=== PATIENT | female | born 1955 | race Caucasian/White ===

== ENCOUNTER 2024-10-27 14:06 | Emergency (ER) | payer MEDICARE, SELFPAY ==
--- OUTSIDE RECORDS SUMMARY | 2020-10-18 08:47 | XMS_ITS | Continuity of Care Document ---
Author Organization [facility] Address [address] [address] [place] [address] Phone Care Team Providers Care Manager Meeting Name Role Phone Jhoan Melendez MD Unavailable Unavailable Allergies, Adverse Reactions, Alerts Substance Reaction Status Criticality Penicillins violently sick Active No Informat ion Medications Medication Instructions Dosage Effective Dates (start - stop) Status Comments AMLODIPINE BESYLATE (unknown strength) Take one tablet by mouth daily. 3mg Not Available - Active triamterene-hydroc hlorothiazide 37.5 mg-25 mg Tab Take one tablet by mouth daily - Active citalopram 10 mg Tab - Active Procedures Procedure Date Colonoscopy Flex; Dx (sep Pro) 10 Advance Directives Directive Yes / No Effective Date File Name No Information Encounters Encounter Description Practice Location Reason(s) For Visit Diagnoses Date Provider Providers Copied on Encounter [facility], [address] [address], [place] Antonio [place], [id number], [place] tel:[phone] [facility] No Information 1 [address]ples. [address] [facility], [place], [place], [id number] , [place]. tel:[phone] [facility], [address] [address], [place], [id number], [place] tel:[phone] Philippe [facility] Diverticulosis Of ColonColon Cancer ScreeningFamily Hx/Colonic PolypsDiverticulosi s Of Colon [phone] Chantelle Colindres. [address] [facility], [facility] [address], [place], [place], [id number] , [place]. tel:[phone] Referring Provider: Beti Huggins MD M, [address], [place], [address]. tel:[phone] Family History Family Member Type Diagnosis Age At Onset No Information Payers Payer name Insurance type Covered republican ID Authoriza tion(s) No Information Social History Type Description Quantity Date Captured Comments Sex Female Smoking Status No Information Chief Complaint And Reason For Visit No Information Reason For Referral Reason For Referral No Information History Of Present Illness Encounter Date Complaint History Of Prese nt Illness No Information Functional Status Date Functional Assessmen t No Information Instructions Date Instruction Additional Infor mation No Information Assessments Type Assessment Date No Information Patient Care Teams Name Effective Dates (start - stop) Status Members No Information
--- OUTSIDE RECORDS SUMMARY | 2024-10-26 10:20 | XMS_ITS | Encounter Summary ---
Author Organization [facility] Address [address] [place] [address] Care Team Providers Care Parcel Post Officer Name Role Phone Needs Pcp, Assignment Primary Care Provider Reason for Visit * Reason Comments Insect Sting - Bee Encounter Details Date Type Department Care Team (Late st Contact Info) Description 10/26/2024 10:20 AM CDT Office Visit [facility] [facility] [address] [place] [phone] [place] [address] [place], [place] [phone] Bee sting, accidental or unintentional, initial encounter Social History Tobacco Use Types Packs/Day Years Used Date Smoking Tobacco: Never Smokeless Tobacco: Never Alcohol Use Standard Drinks/Week Comments No 0 (1 standard drink = 0.6 oz pure alcohol) Alcoholic Drinks/day: Freq:Never; Comments No Sex and Gender Information Value Date Recorded Sex Assigned at Not on file Legal Sex Female 4:42 AM CDT Gender Identity Not on file Sexual Orientation Not on file 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 * Insect Stings and Bites (Japanese) documented in this encounter Progress Notes * Ld Peck MD - 10/26/2024 10:20 AM CDT Patient presents with multiple bee/wasp stings to her right hand after reaching into a mailbox. No know allergy to bees. Patient requests an excuse letter for work/school: No Past Medical History: Diagnosis Date Abnormal glucose 06/08/2013 Subject 69 years old female presented today to clinic she was her mailbox in the office they were multiple vasps they sting her, her dorsal side of the hand on the right side is swollen warm red burning sensation. Past medical history she stated that is she was in the past also stung by was she has some reaction to the but in the past mostly was syncopal. She deny any chest pain chest tightness short of breath cough or swollen tongue or any breathing difficulty or swallowing difficulties. Patient generally alert oriented she does not seems to be distress Objective BP 138/82 (BP Location: Left Arm) Pulse 73 Resp 18 SpO2 98% Vital above Both ear clear, nose midline septum, oral cavity pharynx uvula appear normal Tongue midline not swollen uvula midline not swollen Neck no enlarged lymph Lungs clear no wheezing no crackles no breathing difficulty Cardiac S1-S2 regular normal pulse 73 Upper extremity joints symmetrical for range of motion passive wax normal she has very good reflex normal strong pulse on the both side, dorsal side of her right hand is slightly swollen red feel warm burning sensation Assessment Vasp sting with above local inflammatory reaction Plan Patient agree doze are not bacterial infection doze local reaction to the vein him of the insect plan prednisone Zyrtec during the day prednisone course atopic, ice, Benadryl at night worse additional symptom concern question back to the clinic otherwise follow-up protein she agree documented in this encounter Nursing Notes * Padmini Coronel RN - 10/26/2024 10:20 AM CDT Patient presents with multiple bee/wasp stings to her right hand after reaching into a mailbox. No know allergy to bees. Patient requests an excuse letter for work/school: No documented in this encounter Plan of Treatment Not on file documented as of this encounter Visit Diagnoses Diagnosis Bee sting, accidental or unintentional, initial encounter documented in this encounter Administered Medications Inactive Administered Medications - up to 3 most recent administrations Medication Order MAR Action Action Date Dose Rate Site diphenhydrAMINE (BENADRYL) caplet 25 mg 25 mg, Oral, ONCE, On Fri10/26/24 at 1100, For 1 doseIndications:Bee sting, accidental or unintentional, initial encounter Given 10/26/2024 10:37 AM CDT 25 mg documented in this encounter Care Teams Parcel Post Officer Relationship Specialty Start Date End Date Needs Pcp, [place] [address] PCP - General 02/02/21 documented as of this encounter
--- OUTSIDE RECORDS SUMMARY | 2024-10-27 14:10 | XMS_ITS | Encounter Summary ---
Author Organization [facility] Address [address] [place] [address] Care Team Providers Care Brine Supervisor Name Role Phone Fatemeh Mims PA-C Primary Care Provid er Fatemeh Mims PA-C Unavailable + [phone] Jami Holley MD Unavailable [phone] Fatemeh Mims PA-C Unavailable + [phone] Encounter Details Date Type Department Care Team (Late st Contact Info) Description 09/27/2020 MyC Medical Advice [facility] [address] [place] [address] [address] [place] [phone] Iris Knapp Social History Tobacco Use Types Packs/Day Years Used Date Smoking Tobacco: Never Smokeless Tobacco: Never Alcohol Use Standard Drinks/Week Comments No 0 (1 standard drink = 0.6 oz pur e alcohol) PHQ-2 Answer Date Recorded PHQ-2 Score 2 04/08/2019 Comments No Sex and Gender Information Value Date Recorded Sex Assigned at Not on file 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 Gender Identity Not on file Sexual Orientation Not on file Occupation 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 Not on file Not on file Not on file documented as of this encounter Plan of Treatment Not on file documented as of this encounter Visit Diagnoses Not on filedocumented in this encounter Additional Health Concerns Assessment Noted Time PHQ-9 Depression Total Score: 6 04/08/20 19 4:12 PM GAS OR WATER METER INSTALLER documented as of this encounter Care Teams Brine Supervisor Relationship Specialty Start Date End Date Fatemeh Mism PA-C [address], [address] [address] PCP - General Physician Rn Document Improvement Specialist 05/28/17 Fatemeh Mims PA-C [address], [address] [address] Assigned PCP 09/15/16 11/02/21 Jami Holley MD [address] [address] Assigned PCP 11/03/21 11/23/21 Fatemeh Mims PA-C [address], [address] [address] Assigned PCP 11/24/21 documented as of this encounter
--- OUTSIDE RECORDS SUMMARY | 2024-10-27 14:10 | XMS_ITS | Data Portability ---
Author Organization [facility] [employer] [facility] Address [address] [place] [id number] Assessment No assessment recorded. Plan of Treatment Reminders Order Date Submit Date Provider Last Modified By Organization Details Last Modified Time Details Appointments None recorded. Lab rapid SARS CoV 2 Ag, QL IA, respiratory specimen [address], [address] [place] [address], [id number], 15:54:23 rapid SARS CoV 2 Ag, QL IA, respiratory specimen [address], [address] [place] [address], [id number], 15:35:49 Referral None recorded. Procedures None recorded. Surgeries None recorded. Imaging None recorded. Medication Orders None recorded. Patient TargetsNo targets recorded. Patient Instructions Encounter Date Encounter Id Patient Instructions Last Modified By Organization Details Last Modified Time 01/02/2021 [id number] Discuss the following with patient/parent To Keep a safe distance. ... Wear a mask. ... Encourage proper hygiene. ... The best way to protect yourself and others is to stay home for 14 days if you think you ve been exposed to someone who has COVID-19. Watch for fever (100.4 F or higher), cough, shortness of breath, or other symptoms of COVID-19. Do not travel until 14 days after your last possible exposure. Monitor yourself and household members for symptoms of COVID-19. Look for emergency warning signs* for COVID-19. If you have any of these signs, seek emergency medical care immediately Trouble breathing Persistent pain or pressure in the chest New confusion Inability to wake or stay awake [email or web address] Not available 01/03/2021 15:35:59 50% spend counseling Not available 01/03/2021 15:36:07 04/13/2021 [id number] Discuss the following with patient/parent To Keep a safe distance. ... Wear a mask. ... Encourage proper hygiene. ... The best way to protect yourself and others is to stay home for 14 days if you think you ve been exposed to someone who has COVID-19. Watch for fever (100.4 F or higher), cough, shortness of breath, or other symptoms of COVID-19. Do not travel until 14 days after your last possible exposure. Monitor yourself and household members for symptoms of COVID-19. Look for emergency warning signs* for COVID-19. If you have any of these signs, seek emergency medical care immediately Trouble breathing Persistent pain or pressure in the chest New confusion Inability to wake or stay awake Not available 04/13/2021 15:54:22 Reason for Referral None Reported. Results Created Date Observation Date Name Description Value Unit Range Abnormal Flag Note LastModifiedBy Organization Detail LastModifiedTime 01/03/20 21 01/02/2021 rapid SARS CoV 2 Ag, QL IA, respi rator y speci men Results negati ve Not Available Formerly [facility] [address] [place] [address], [phone], 01/02/2021 16:42:38 Result Notes None recorded. Medical Equipment None Reported. Medications Name Sig Start Date Stop Date Status Note LastModified by Organization Details LastModified Time latanoprost 0.005 % eye drops INSTILL 1 DROP INTO BOTH EYES AT BEDTIME active Not Available Not Available No t Available atorvastatin 20 mg tablet TAKE 1 TABLET BY MOUTH EVERY DAY active Not Available Not Available No t Available atorvastatin 10 mg tablet TAKE 1 TABLET BY MOUTH EVERY DAY active Not Available Not Available No t Available amlodipine 5 mg tablet TAKE 1 TABLET BY MOUTH EVERY DAY active Not Available Not Available No t Available tramadol 50 mg tablet active Not Available Not Available Not Available citalopram 20 mg tablet TAKE 1 TABLET BY MOUTH EVERY DAY active Not Available Not Available No t Available diazepam 2 mg tablet TAKE 1 TABLET (2 MG) BY MOUTH EVERY 12 HOURS NEEDED FOR ANXIETY OR SLEEP active Not Available Not Available No t Available triamterene 37.5 mg-hydrochloro thiazide 25 mg tablet TAKE 1 TABLET BY MOUTH EVERY DAY active Not Available Not Available No t Available ibuprofen 600 mg tablet active Not Available Not Available No t Available oxycodone 5 mg tablet active Not Available Not Available Not Available hydroxyzine pamoate 25 mg capsule active Not Available Not Available Not Available Vitals None Recorded Social History None recorded. Functional Status None recorded. Mental Status None recorded. Family History Nothing Reported. Medical History No medical history recorded. Gynecological HistoryNo gynecological history recorded. Obstetrics History GPAL:G 0 P 0 0 0 0 Past Encounters Encounter ID Performer Location Encounter Start Date Encounter Closed Date Diagnosis/Indication Diagnosis SNOMED-CT Code Diagnosis ICD10 Code Diagnosis Note [id number] ANAND Augustin Michael [address] [address] 01/02/2021 16:42:06 01/02/2021 16:43:25 Exposure to SARS-CoV-2 571367189 Z20.822 Counseling 315994164 Z71 .9 [id number] ANAND Augustin Michael [address] [address] 04/13/2021 14:39:12 04/18/2021 13:21:53 Exposure to SARS-CoV-2 505561369 Z20.822 Counseling 145975048 Z71 .9 Health Concerns Section Related Observation LastModified by Organization Detai ls LastModified Time None Recorded Concern Status LastModified by Organization Details LastModified Time None Recorded Advance Directives Directive None Recorded Payers Insurance Date Sequence Insurance Name Policy Number Policy Clark Covered Member ID Clark Member ID Guarantor Name 06/05/2021 [facility] Emelia Moon [id number] Carol Moon 02/16/2021 1 [employer] - DOS PRIOR TO 2021 Emelia Moon [id number] Carol Moon 04/27/2021 1 [employer] - INDIVIDUAL AND FAMILY (HMO) Emelia Moon [id number] Carol Moon 02/14/2021 2 [facility] - INDIVIDUAL AND FAMILY (HMO) Emelia Moon [id number] Carol Moon Notes Date Note Type Note Provider Name and Address Organization Details Recorded Time 01/02/2021 text/html Patient is here for COVID19 testing after exposure. Patient denies cough, sore throat, no fevers / chills, no SOB or headaches. Otherwise doing well. ANAND Augustin [address] [place], [address], [employer] 01/03/2021 15:36:10 04/13/2021 text/html Patient is here for covid-19 test due to exposure. denies symptoms. ANAND Augustin [address] [place], [address], [employer] 04/13/2021 15:54:30 OBGyn Episode No OBEpisode recorded.
--- OUTSIDE RECORDS SUMMARY | 2024-10-27 14:10 | XMS_ITS | Encounter Summary ---
Author Organization [facility] Address [address] [place] [address] Care Team Providers Care Blanking Press Operator Name Role Phone Luis Ulloa MD Primary Care Provide r Fatemeh Mims PA-C Primary Care Provid er Fatemeh Mims PA-C Unavailable + [phone] Jami Holley MD Unavailable [phone] Fatemeh Mims PA-C Unavailable + [phone] Reason for Visit * Reason Comments Medication Refill Encounter Details Date Type Department Care Team (Late st Contact Info) Description 03/06/2015 Refill [facility] [address] [place] [phone] Chary Barry MD NO INFO AVAILABLE 11/07/22 Medication Refill Social History Tobacco Use Types Packs/Day Years Used Date Smoking Tobacco: Never Smokeless Tobacco: Never Alcohol Use Standard Drinks/Week Comments No 0 (1 standard drink = 0.6 oz pur e alcohol) Comments No Sex and Gender Information Value Date Recorded Sex Assigned at Not on file 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 Gender Identity Not on file Sexual Orientation Not on file Occupation 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 Not on file Not on file Not on file documented as of this encounter Plan of Treatment Not on file documented as of this encounter Visit Diagnoses Not on filedocumented in this encounter Care Teams Blanking Press Operator Relationship Specialty Start Date End Date Luis Ulloa MD [address], [address] [address] PCP - General Family Practice 04/28/13 05/27/17 Fatemeh Mims PA-C [address], [facility] [address] [place] [address] PCP - General Physician Metal Furniture Panel Coverer 05/28/17 Fatemeh Mims PA-C [address], [address] [address] Assigned PCP 09/15/16 11/02/21 Jami Holley MD [address] [address] Assigned PCP 11/03/21 11/23/21 Fatemeh Mims PA-C [address], [address] [address] Assigned PCP 11/24/21 documented as of this encounter
--- OUTSIDE RECORDS SUMMARY | 2024-10-27 14:10 | XMS_ITS | Encounter Summary ---
Author Organization [facility] Address [address] [place] [address] Care Team Providers Care Title I Director Name Role Phone Fatemeh Mims PA-C Primary Care Provid er Fatemeh Mims PA-C Unavailable [phone] Reason for Visit * Reason Comments Medication Refill Encounter Details Date Type Department Care Team (Late st Contact Info) Description 01/15/2022 Refill [facility] [address] [place] [address] Jami Holley MD [address] [place] [address] [address] [place] [address] Medication Refill Social History Tobacco Use Types Packs/Day Years Used Date Smoking Tobacco: Never Smokeless Tobacco: Never Alcohol Use Standard Drinks/Week Comments No 0 (1 standard drink = 0.6 oz pur e alcohol) PHQ-2 Answer Date Recorded PHQ-2 Score 2 12/07/2021 Comments No Sex and Gender Information Value Date Recorded Sex Assigned at Not on file 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 Pt takes 2 daily. Emelia Moon is requesting a refill of: Pending Prescriptions: Disp Refills amLODIPine (NORVASC) 5 MG tablet [Pharmac*180 ta*2 Sig: TAKE 2 TABLETS BY MOUTH EVERY DAY documented in this encounter Plan of Treatment Not on file documented as of this encounter Visit Diagnoses Diagnosis Benign essential hypertension Essential hypertension, benign documented in this encounter Additional Health Concerns Assessment Noted Time PHQ-9 Depression Total Score: 5 12/08/19 22 1:38 PM CDT documented as of this encounter Care Teams Title I Director Relationship Specialty Start Date End Date Fatemeh Mims PA-C [address], [address] [address] PCP - General Physician Hospice Clinical Supervisor 05/28/17 Fatemeh Mims PA-C [address], ANA M [address] [place] [address] Assigned PCP 11/24/21 documented as of this encounter
[2024-10-27 14:11] VITALS: BP 121/77; PULSE 68; RESP 18; TEMP 36.4; O2SAT 98; BMI 35.6
--- OUTSIDE RECORDS SUMMARY | 2024-10-27 14:11 | XMS_ITS | Encounter Summary ---
Author Organization [facility] [employer] [facility] Address [address] [address] Care Team Providers Care Chemistry Instructor Name Role Phone Needs Pcp, Assignment Primary Care Provider Reason for Visit * Reason Onset Date Comments Medication Questions 03/25/2016 Encounter Details Date Type Department Care Team (Late st Contact Info) Description 03/25/2016 Nurse Triage [facility] [address] [place] [address] Vannessa Delarosa MD [address] [place], [place] [phone] Medication Questions Social History Tobacco Use Types Packs/Day Years [...] on file documented as of this encounter Nursing Notes * Clara Mcintyre LPN - 03/26/2016 10:41 AM CST Patient called and advised. NESS INSTRUCTOR * Vannessa Delarosa MD - 03/25/2016 7:35 PM CST New order sent NESS INSTRUCTOR * Genaro Garcia APRN, CNP - 03/25/2016 4:58 PM CST This can wait until tomorrow for Dr. Delarosa to review. NESS INSTRUCTOR * Kristina Lancaster RN - 03/25/2016 2:56 PM CST Reason for Call: Medication Request. Next Steps: Review pended order for accuracy. Sign. Route to appropriate person/pool. Caller IS expecting a call back from Care Team. Route to [facility] Nurse pool for patient follow up. Additional Information:Needs clarification on Asmanex prescription. Pharmacy received prescription that would last only 8 days and insurance requires 30 day supply be ordered. Protocol: MEDICATION QUESTION [id number] Affirmative: Pharmacy calling with prescription questions and triager unable to answer question Disposition of Call PCP Now suggested. Spoke with pharmacist from [facility] in [facility] patient was given only 8 days of the Asmanex inhaler and insurance requires 30 day supply. Per visit note today: Prednisone 20 mg p.o. b.i.d. ??5 days.?? Amoxicillin 500 mg p.o. t.i.d. ??10 days.?? Asmanex inhaler 110 ??g per puff 1 puff twice daily.?? Albuterol inhaler 2 puffs every 4 hours as needed.?? Follow-up in 2-3 weeks, sooner if needed. Per medication list:mometasone furoate (ASMANEX 30 METERED DOSES) 110 mcg/inhalation inhaler 1 Inhaler 0 03/25/2016 -- ?? Sig - Route: Inhale 2 Puffs two times a day. - Inhalation ?? Please clarify how often patient to take the Asmanex and how may puffs she should use. New prescription pended for Asmanex 1 puff twice daily. NESS INSTRUCTOR * Naima Greenberg - 03/25/2016 2:26 PM CST Pharmacy calling with questions on a prescription that was e prescribed NESS INSTRUCTOR documented in this encounter Plan of Treatment Not on file documented as of this encounter Visit Diagnoses Not on filedocumented in this encounter Care Teams Chemistry Instructor Relationship Specialty Start Date End Date Needs Pcp, [place] [address] PCP - General 02/02/21 documented as of this encounter
--- OUTSIDE RECORDS SUMMARY | 2024-10-27 14:11 | XMS_ITS | Clinical Summary ---
Author Organization [facility] Address [address] [place] [address] Care Team Providers Care Nurse Extern Name Role Phone Needs Pcp, Assignment Primary Care Provider [phone] Source Comments You are receiving this document as you are listed as the primary care provider,follow-up provider, or the patient has been referred to you for consultation.This is in compliance with the Medicare andMedicaid EHR Incentive Program,which states Providers who transition their patient to another setting of careor provider of care or refers their patient to another provider of care shouldprovide summary care record for each transition of care or referral. Leroy Brothers Allergies Active Allergy Reactions Criticality Noted Date Comments Amlodipine Anaphylaxis High 09/12/2011 PN: certain brands will cause reactions. Amoxicillin 08/12/2014 Lip numb, hives Chlorpheniramine-Acetaminop hen Angioedema High 06/08/2013 Erythromycin 06/10/2000 PN: dizzy,nausea+vomiting Naproxen Anaphylaxis High 09/12/2011 PN: coating/ brand causes reaction; causes lip swelling Medications EPINEPHrine (AUVI-Q) 0.3 MG/0.3ML injectionIndicatio ns:Angioedema, subsequent encounter Inject 0.3 mLs into the muscle as needed. May Repeat 2 each 2 6 Active atorvastatin (LIPITOR) 10 MG tabletIndications: Hyperlipidemia, unspecified hyperlipidemia type (HRC) Take 1 Tab by mouth daily. 90 Tab 3 7 Active citalopram (CELEXA) 20 MG tabletIndications: Grief reaction (HRC) Take 1 Tab by mouth daily. 90 Tab 3 7 Active potassium chloride (K-DUR,KLOR-CONM) 20 MEQ tabletIndications: Low serum potassium level Take 1 Tab by mouth daily. 90 Tab 3 7 Active triamterene-hydroc hlorothiazide (MAXZIDE-25) 37.5-25 MG tabletIndications: Essential hypertension (HRC) Take 1 Tab by mouth daily. 90 Tab 3 7 Active rizatriptan (MAXALT) 10 MG tabletIndications: Migraine without aura and without status migrainosus, not intractable Take 1 Tab by mouth as needed for Headache. at onset of migraine. May repeat in 2 hr if needed up to 30mg in 24 hr & MAX use 5 days/month 9 Tab 6 7 Active amLODIPine (NORVASC) 5 MG tablet 9 Active diazePAM (VALIUM) 2 MG tablet Take 2 mg by mouth. 9 Active latanoprost (XALATAN) 0.005 % eye drop solution 1 Drop daily at bedtime. 2 Active timolol (TIMOPTIC) 0.5 % eye drop solution 1 Drop every morning. 2 Active citalopram (CELEXA) 20 MG tablet citalopram 20 mg tablet Active Hospital, Clinic, or Other Facility Administered Medication Ordered Dose Route Frequency Start Date End Date Status diphenhydrAMINE (BENADRYL) caplet 25 mgIndications:Bee sting, accidental or unintentional, initial encounter 25 mg OR ONCE 10/26/2024 10/26/2024 Ended Active Problems Problem Noted Date Diagnosed Date Migraine without aura and wi thout status migrainosus, not intractable 12/05/2016 OZ (generalized anxiety disorder) 07/24/2016 Moderate episode of recurrent major depressive d isorder 07/24/2016 Anxiety 06/12/2016 Leg swelling 11/21/2015 Abnormal glucose 06/08/2013 Angioedema 11/28/2011 Overview (12/14/2015): associated with use of the generic amlodipine. Tolerates MINERVA. Obesity 10/16/2010 Grief reaction 10/16/2010 Impaired glucose tolerance test 06/01/2009 Overview (12/04/2016): Glucose Intolerance (Impaired Tolerance) Obesity 07/16/2004 Overview (12/14/2015): LW Onset: [id number] Dyspnea and respiratory abnormalities 07/16/2004 Overview (12/04/2016): LW Modifier: heroic LW Onset: [id number] ; Snoring NOS Essential hypertension 09/18/2002 Overview (12/04/2016): Hypertension Obstructive sleep apnea 09/18/2002 Overview (12/04/2016): Setting: APAP 5-15 Supplied by: KATTY PSG done: 06/19/16 AHI 9 HTN Lowest O2 Sat: 82% Charissa/Maddison Ed ord 06/13/2016 Trumm New 07/08/16 ; Obstructive Sleep Apnea Hypopnea Hyperlipidemia 09/18/2002 Asthma 09/18/2002 Overview (12/04/2016): Asthma NOS Encounters Date Type Department Care Team Description 10/26/2024 10:20 AM CDT Office Visit [facility] [address] [place] [address] Ld Peck MD Bee sting, accidental or unintentional, initial encounter from Last 3 Months Immunizations Immunization Administration Dates Next Due DT Ped 12/23/1990,08/12/1989 Flu Vac Preserv Free (3+yrs) 03/08/2009, 03/29/2008,02/04/2007,03/06/20 05 Influenza LAIV (Nasal, 2-49 yrs) 03/13/2006 Influenza, Unspecified Formulation 02/22,03/04/2001,03/31/2000,02/15/19 99,02/20/1998 TDAP (BOOSTRIX) 11/21/2015 Td 03/21/2005 Family History Medical History Relation Name Comments Heart Disease Father Cataract Mother Glaucoma Mother Cancer, Breast Maternal Aunt 1 50s Cancer, Breast Maternal Aunt 2 60s Cancer, Breast Maternal Aunt 3 50s Diabetes Maternal Grandmother Cancer, Ovary Negative Family History Macular Degeneration Negative Family History Retinal Detachment Negative Family History Relation Name Status Comments Father Mother Brother 1 Alive Brother 2 Alive Brother 3 Brother 4 Alive Maternal Aunt 1 Alive Maternal Aunt 2 Maternal Aunt 3 Maternal Grandmother Sister 1 Alive Sister 2 Alive Social History Tobacco Use Types Packs/Day Years [...] file Not on file Not on file Last Filed Vital Signs Vital Sign Reading Time Taken Comments Blood Pressure 138/82 10/26/2024 10:22 AM CDT Pulse 73 10/26/2024 10:22 AM CDT Temperature 36.8 C (98.2 F) 11/15/2021 1:00 PM CDT Respiratory Rate 18 10/26/2024 10:22 AM CDT Oxygen Saturation 98% 10/26/2024 10:22 AM CDT Inhaled Oxygen Concentration - - Weight 105.8 kg (233 lb 4 oz) 12/04/2016 3:15 PM CDT Height 160 cm (5' 3) 07/09/2016 12:19 PM CDT Body Mass Index 41.32 07/09/2016 12:19 PM CDT Plan of Treatment Health Maintenance Due Date Last Done Comments Hep C Screening (Preventive Services) 1955 Medicare Annual Wellness Visit 1955 Tuberculosis Screening 1955 FIT Colon Cancer Screening 2000 Dexa 2021 Cholesterol 12/05/2021 12/05/2016, 12/2015, 08/06/2012, Additional history exists COVID-19 Vaccine ( season) 2023 08/30/2021, 02/28/2021, 07/18/2020, Additional history exists Mammogram 10/06/2024 10/07/2023, 12/15, 11/13/2015, Additional history exists Influenza Vaccine (#1) 2024 4, 01/30/2021, 02/02/2020, Additional history exists DTaP/Tdap/Td Vaccine (6 - Tdap) 11/20/2025 11/21/2015, 08/12/2014, 03/21/2005, Additional history exists RSV Vaccine (1 - 1-dose 75+ series) 2031 Zoster/Shingles Vaccine Completed 12/06/2020, 04/11 Pneumococcal Vaccine 50+ Yrs Completed 03/31/2024 HepA Vaccine Aged Out No longer eligi ble based on patient's age to complete this topic HepB Vaccine Aged Out No longer eligi ble based on patient's age to complete this topic Hib Vaccine Aged Out No longer eligi ble based on patient's age to complete this topic IPV (Polio) Vaccine Aged Out No longe r eligible based on patient's age to complete this topic MCV4 Vaccine Aged Out No longer eligi ble based on patient's age to complete this topic Meningococcal B Vaccine Aged Out No l onger eligible based on patient's age to complete this topic Procedures Procedure Name Priority Date/Time Associated Diagnosis Comments MM MAMMOGRAM SCREENING BILAT W CAD Routine 10/07/2023 3:47 PM CDT Visit for screening mammogram LIPID PANEL & DIRECT LDL (IF NEEDED) Routine 12/05/2016 8:36 AM CDT Hyperlipidemia, unspecified hyperlipidemia type from Last 3 Months or Most Recently Relevant to Health Maintenance Results * MM Mammogram Screening Bilat W CAD (10/07/2023 3:47 PM CDT) Anatomical Region Laterality Modality Breast Bilateral Mammography Impressions 10/07/2023 4:03 PM CDT : ACR BI-RADS Category 1: Negative RECOMMENDATION: Follow Up Imaging in 12 months - Bilateral The results and recommendations of this examination will be communicated to the patient. Narrative 10/07/2023 4:03 PM CDT MM MAMMOGRAM SCREENING BILAT W CAD performed on 10/07/23 Compared to: 01/11/2021 MM Mammogram Screening Bilat W CAD, 11/13/2015 MM Mammogram Screening Bilat W CAD, and 06/01/2013 [facility] Mammogram Diag Bilat FINDINGS: Bilateral screening mammogram was performed with the assistance of Computer-Aided Detection . There are scattered areas of fibroglandular density. There is no radiographic evidence of malignancy. us Fatemeh Mims PA-C RAD WILIAN Final Result * (ABNORMAL) Lipid Panel and Direct LDL(If Needed) (12/05/2016 8:36 AM CDT) Cholesterol 221(H) 0 - 199 mg/dL PN SOFT Triglycerides 154(H) 4 - 149 mg/dL PN SOFT HDL Cholesterol 48 >39 mg/dL PN SOFT Cholesterol/HDL Ratio Screen 4.6 PN SOFT LDL Calculated 142(H) 19 - 130 mg/dL PN SOFT Hours Fasting 12.5 PN SOFT 12/05/2016 8:36 AM CDT 12/05/2016 8:36 AM CDT Narrative PN SOFT - 12/05/2016 10:07 AM CDT Performed at [facility], [address] [place] [address] CLIA number [id number] us Vannessa Delarosa MD LAB_1 Final Result PN SOFT [address] [place], [place] [address] from Last 3 Months or Most Recently Relevant to Health [place] [id number] [facility] MEDICARE SUPPLEMENT Care Teams Nurse Extern Relationship Specialty Start Date End Date Needs Pcp, [place] [address] PCP - General 02/02/21
--- OUTSIDE RECORDS SUMMARY | 2024-10-27 14:11 | XMS_ITS | Clinical Summary ---
Author Organization [facility] Address [address] [place] [address] Care Team Providers Care Cheerleading Coach Name Role Phone Fatemeh Mims PA-C Primary Care Provid er Fatemeh Mims PA-C Unavailable [phone]- [phone] Allergies Active Allergy Reactions Criticality Noted Date Comments Amoxicillin 08/12/2014 Lip numb, hives Erythromycin 02/25/2011 Green Dye 07/31/2021 ALL DYES in medications per pt Medications EPINEPHrine (EPIPEN 2-MARYCRUZ) 0.3 MG/0.3ML injectionIndicat ions:Allergy, unspecified not elsewhere classified Inject 0.3 mLs (0.3 mg) into the muscle once as needed for anaphylaxis Allergic to some pill coatings 1 each 1 4 Active latanoprost (XALATAN) 0.005 % ophthalmic solution 1 Active diazepam (VALIUM) 2 MG tabletIndication s:Panic attack,Generaliz ed anxiety disorder Take 1 tablet (2 mg) by mouth every 12 hours as needed for anxiety or sleep 10 tablet 1 Active Additional Information Patient not taking.Reported on 11/27/2023 timolol maleate (TIMOPTIC) 0.5 % ophthalmic solution 1 drop 2 times daily 2 Active loratadine (CLARITIN) 10 MG tablet Take 10 mg by mouth daily Active rizatriptan (MAXALT) 10 MG tabletIndication s:Migraine without aura and without status migrainosus, not intractable Take 1 tablet (10 mg) by mouth at onset of migraine. Repeat in 1 hour if symptoms remain. Max dose 20mg/24 hour 10 tablet 1 3 Active amLODIPine (NORVASC) 5 MG tabletIndication s:Benign essential hypertension Take 1 tablet (5 mg) by mouth daily. 90 tablet 2 4 Active atorvastatin (LIPITOR) 80 MG tabletIndication s:Mixed hyperlipidemia,E levated coronary artery calcium score Take 1 tablet (80 mg) by mouth daily. 90 tablet 2 4 Active citalopram (CELEXA) 20 MG tabletIndication s:Generalized anxiety disorder Take 1 tablet (20 mg) by mouth daily. 90 tablet 2 4 Active triamterene-HCTZ (MAXZIDE-25) 37.5-25 MG tabletIndication s:Benign essential hypertension TAKE ONE CAPSULE BY MOUTH ONCE DAILY 90 tablet 2 4 Active Active Problems Problem Noted Date Diagnosed Date Glaucoma suspect, bilateral 07/12/2022 Elevated coronary artery calcium score 3 Family history of coronary artery disease 2021 SAM (obstructive sleep apnea) 07/31/2021 History of migraine 03/28/2021 S/P TKR (total knee replacement), left 0 History of total knee arthroplasty, right 2018 Prediabetes 05/29/2018 Morbid obesity 07/02/2017 Essential hypertension, benign (HTN) 07/29/2013 Mixed hyperlipidemia 07/29/2013 Angioedema 07/29/2013 Overview (07/29/2013): Unclear etiology Generalized anxiety disorder 07/29/2013 ACP (advance care planning) 04/30/2013 Overview (05/21/2019): Allergic reaction, history of 02/25/2011 Resolved Problems Problem Noted Date Diagnosed Date Resolved Date Anxiety 10/08/2019 03/28/2021 Hypertension 10/08/2019 03/28/2021 Post herpetic neuralgia 04/09/201903/14 Obesity with body mass index of 30.0-39.9 08/15/2014 11/24/2018 Overview (02/13/2015): Diagnosis updated by automated process. Provider to review and confirm. [facility] 02/02/2013 09/29/2023 Overview (07/26/2013): State Tier Level: Tier 0 Status: n/a Electric Fan Assembler: Emelia Smith See Letters for H Care Plan Sprain of collateral ligament of left knee 05/27/2011 03/28/2021 Immunizations Immunization Administration Dates Next Due COVID-19 MONOVALENT 12+ (Pfizer) 07/18/2020,06/12 Flu, Unspecified 03/08/2009, 8,02/04/2007,2005,03/06/2005 Historical DTP/aP 12/23/1990,08/12/1989 Influenza (IIV3) PF 03/04/2012, 2,03/04/2001,1999,02/15/1999,02/20/1998 Influenza Vaccine >6 months,quad, PF ,02/02/2020,02/25/2019,2013,04/30/2013 TD,PF 7+ (Tenivac) 08/12/2014,03/21/2005 TDAP Vaccine (Boostrix) 11/21/2015 Zoster recombinant adjuvante d (Shingrix) 12/06/2020,04/11/2019 Family History Medical History Relation Comments Alcoholism Brother 1 Myocardial Infarction Brother 1 76 Alcoholism Brother 2 Alcoholism Brother 3 Alcoholism Brother 4 C.A.D. Father Hypertension Father Breast Cancer Maternal Aunt 1 Breast Cancer Maternal Aunt 2 Breast Cancer Maternal Aunt 3 Breast Cancer Maternal Aunt 4 Breast Cancer Maternal Aunt 5 Diabetes Mother Hypertension Mother Kidney Disease Mother lone kidney Myocardial Infarction Sister 1 63 Alcoholism Sister 2 Cancer - colorectal No family hx of Relation Status Comments Brother 1 Brother 2 Alive Brother 3 Alive Brother 4 Alive Daughter 1 Alive Daughter 2 Alive Father Alive Maternal Aunt 1 Maternal Aunt 2 Maternal Aunt 3 Maternal Aunt 4 Maternal Aunt 5 Mother (Age 82) Sister 1 Alive Sister 2 Alive Social History Tobacco Use Types Packs/Day Years Used Date Smoking Tobacco: Never Passive Smoke Exposure: Never Smokeless Tobacco: Never Tobacco Cessation:Counseling Given: Not Answered Alcohol Use Standard Drinks/Week Comments No 0 (1 standard drink = 0.6 oz pur e alcohol) PHQ-2 Answer Date Recorded PHQ-2 Score 0 11/27/2023 Adolescent Education Answer Date Record ed Getting School Help Needed Not on file 01/11 Comments No Sex and Gender Information Value Date Recorded Sex Assigned at Not on file Legal Sex Female 3:12 AM ECONOMICS DEPARTMENT CHAIR Gender Identity Not on file Sexual Orientation Not on file 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 Not on file Not on file Not on file Last Filed Vital Signs Vital Sign Reading Time Taken Comments Blood Pressure 151/113 03/05/2024 6:22 AM ECONOMICS DEPARTMENT CHAIR Pulse 76 03/05/2024 6:22 AM ECONOMICS DEPARTMENT CHAIR Temperature 36.5 C (97.7 F) 03/05/2024 6:22 AM ECONOMICS DEPARTMENT CHAIR Respiratory Rate 18 03/05/2024 6:22 AM ECONOMICS DEPARTMENT CHAIR Oxygen Saturation 99% 03/05/2024 6:22 AM ECONOMICS DEPARTMENT CHAIR Inhaled Oxygen Concentration - - Weight 105 kg (231 lb 7.7 oz) 03/05/2024 6:22 AM ECONOMICS DEPARTMENT CHAIR Height 160 cm (5' 3) 03/05/2024 6:22 AM ECONOMICS DEPARTMENT CHAIR Body Mass Index 41.01 03/05/2024 6:22 AM ECONOMICS DEPARTMENT CHAIR Plan of Treatment Health Maintenance Due Date Last Done Comments ANNUAL REVIEW OF HM ORDERS 1955 CT COLONOGRAPHY 1955 DEXA 1955 FIT 1955 FLEX SIG 1955 sDNA (Cologuard) 1956 PNEUMOCOCCAL VACCINE 50+ YEARS (1 of 2 - PCV) 1975 RSV VACCINE (1 - Risk 60-74 years 1-dose series) 2016 COLONOSCOPY 05/01/2019 05/01/2009 COLORECTAL CANCER SCREENING 05/01/2019 MEDICARE ANNUAL WELLNESS VISIT 12/05/2023 12/04/2022, 08/12/2014 COVID-19 VACCINE ( season) 2023 08/30/2021, 02/28/2021, 07/18/2020, Additional history exists PHQ-2 (once per calendar year) 2024 11/27/2023, 11/27/2023, 06/04/2023, Additional history exists FALL RISK ASSESSMENT 09/15/2024 09/16/2023, 07/12/2022, 03/28/2021 MAMMO SCREENING 10/06/2024 10/07/2023, 12/15, 01/11/2021, Additional history exists INFLUENZA VACCINE (#1) 2024 , 02/02/2020, 02/25/2019, Additional history exists BMP 03/19/2025 03/19/2024, 02/13, 12/04/2022, Additional history exists LIPID 03/19/2025 03/19/2024, 11/13, 07/12/2022, Additional history exists DTAP/TDAP/TD VACCINE (6 - Td or Tdap) 11/20/2025 11/21/2015, 08/12/2014, 03/21/2005, Additional history exists ADVANCE CARE PLANNING 07/31/2026 07/31/2021 , 03/28/2021, 04/30/2013 DIABETES SCREENING 03/19/2027 03/19/2024, 1 05/20/2023, 03/05/2024, Additional history exists HEPATITIS C SCREENING Completed 08/12/2014 ZOSTER VACCINE Completed 12/06/2020, 04/11/2019 HPV VACCINE Aged Out No longer eligi ble based on patient's age to complete this topic MENINGITIS VACCINE Aged Out No longer eligible based on patient's age to complete this topic Medical Devices Implanted Type Area I O Psychologist Device Identifier Shelf Expiration Date Model / Serial / Lot Bone Cement Simplex W/Tobramycin 6197-9-001 Implanted:Qty : 2 on 11/27/2018 by Sang Mcleod MD at [facility] Cement, Bone Right: Knee [employer] 02/12/2020 6197-9-001 / / [id number] Bone Cement Simplex W/Tobramycin 6197-9-001 Implanted:Qty : 1 on 04/23/2019 by Sang Mcleod MD at [facility] Cement, Bone Left: Knee [employer] 09/11/2020 6197-9-001 / / [id number] Bone Cement Simplex W/Tobramycin 6197-9-001 Implanted:Qty : 1 on 04/23/2019 by Sang Mcleod MD at [facility] Cement, Bone Left: Knee [employer] 04/13/2020 6197-9-001 / / [id number] Imp Comp Femoral S&N Legion Ps Oxin Sz3 Rt [id number] Implanted:Qty : 1 on 11/27/2018 by Sang Mcleod MD at [facility] Total Joint Component /Insert Right: Knee BAKER 05/06/2026 [id number] / / [id number] Imp Baseplate Tibial Lucinda Ii Sz 3 Rt Ti [id number] Implanted:Qty : 1 on 11/27/2018 by Sang Mcleod MD at [facility] Total Joint Component /Insert Right: Knee BAKER 08/23/2028 [id number] / / [id number] Imp Comp Patella S&N Uhmwpe 35x9mm Oval [id number] Implanted:Qty : 1 on 11/27/2018 by Sang Mcleod MD at [facility] Total Joint Component /Insert Right: Knee BAKER 05/23/2028 [id number] / / [id number] Imp Insert Tib S&N Lgn Ps Hi Flex Xlpe Sz3-4 11mm [id number] Implanted:Qty : 1 on 11/27/2018 by Sang Mcleod MD at [facility] Total Joint Component /Insert Right: Knee BAKER 12/03/2027 [id number] / / [id number] Imp Comp Patella S&N Uhmwpe 35x9mm Oval [id number] Implanted:Qty : 1 on 04/23/2019 by Sang Mcleod MD at [facility] Total Joint Component /Insert Left: Knee BAKER 06/24/2027 [id number] / / [id number] Imp Comp Femoral S&N Legion Ps Oxin Sz4 Lt [id number] Implanted:Qty : 1 on 04/23/2019 by Sang Mcleod MD at [facility] Total Joint Component /Insert Left: Knee BAKER 07/31/2028 [id number] / / [id number] Imp Baseplate Tibial Lucinda Ii Sz 3 Lt Ti [id number] Implanted:Qty : 1 on 04/23/2019 by Sang Mcleod MD at [facility] Total Joint Component /Insert Left: Knee SAMUEL 12/11/2028 [id number] / / [id number] Imp Insert Tib S&N Lgn Ps Hi Flex Xlpe Sz3-4 9mm [id number] Implanted:Qty : 1 on 04/23/2019 by Sang Mcleod MD at [facility] Total Joint Component /Insert Left: Knee BAKER 12/05/2028 [id number] / / [id number] Eye Imp Iol Umang Toric Acrysof Iq Pcl Sn6at6 7.0 Implanted:Qty : 1 on 08/11/2012 by Rafa Parada MD at [facility] 01/11/2017 SN6AT6 7.0 / [id number] / Eye Imp Iol Umang Toric Acrysof Iq Pcl Sn6at5 7.0 Implanted:Qty : 1 on 08/18/2012 by Rafa Parada MD at [facility] Left: Eye [facility] 08/12/2015 SN6AT5 7.0 / [id number] / Procedures Procedure Name Priority Date/Time Associated Diagnosis Comments HEMOGLOBIN A1C ([facility]) Routine 03/19/2024 9:05 AM ECONOMICS DEPARTMENT CHAIR Prediabetes LIPID PANEL ([facility]FP) Routine 03/19/2024 Mixed hyperlipidemia Elevated coronary artery calcium score COMPREHENSIVE METABOLIC PANEL ([facility]) Routine 03/19/2024 Benign essential hypertension HEPATITIS C ANTIBODY Routine 08/12/2014 2:09 PM CDT Routine history and physical examination of adult ZZHC COLONOSCOPY W BIOPSY Routine 05/01/2009 SCANNING RESULTS MA SCREENING DIGITAL BILATERAL Routine 09/19/2006 SCANNING RESULTS from Last 3 Months or Most Recently Relevant to Health Maintenance Results * (ABNORMAL) HEMOGLOBIN A1C ([facility]) (03/19/2024 9:05 AM ECONOMICS DEPARTMENT CHAIR) Hemoglobin A1C 6.2(A) 4 - 5.6 % [facility] Blood 03/19/2024 9:05 AM ECONOMICS DEPARTMENT CHAIR Fatemeh HAYESC LAB - NON-[employer] OD LABS Final Result Performing Organization Address City/[facility] Co de Phone Number [facility] [address] * (ABNORMAL) Lipid Panel ([facility]) (03/19/2024) Cholesterol 158 0 - 199 mg/dL [facility] Triglycerides 152(A) 0 - 149 mg/dL [facility] HDL Cholesterol 41 40 - 150 mg/dL [facility] LDL-C 87 0 - 129 mg/dL [facility] Cholesterol/HDL Ratio 4 0 - 5 [facility] Blood 03/19/2024 Fatemeh Mims PA-C LAB - NONCode Fever OD LABS Final Result Performing Organization Address [facility] Co de Phone Number [facility] [address] * (ABNORMAL) Comprehensive Metobolic Panel ([facility]) (03/19/2024) Carbon Dioxide 27.0 20 - 32 mmol/L [facility] Creatinine 0.83 0.60 - 1.30 mg/dL [facility] Glucose 111(A) 60 - 99 mg/dL [facility] Sodium 143.5 135 - 146 mmol/L [facility] Potassium 3.63 3.5 - 5.3 mmol/L [facility] Chloride 108.0 98 - 110 mmol/L [facility] Protein Total 6.5 6.1 - 8.1 g/dL [facility] Albumin 4.1 3.6 - 5.1 g/dL [facility] Alkaline Phosphatase 52 33 - 130 U/L [facility] ALT 16 0 - 32 U/L [facility] AST 12 0 - 35 U/L [facility] Bilirubin Total 1.1 0.2 - 1.2 mg/dL [facility] Urea Nitrogen 20 7 - 25 mg/dL [facility] Calcium 9.8 8.6 - 10.3 mg/dL [facility] BUN/Creatinine Ratio 24 6 - 32 [facility] Blood 03/19/2024 us Fatemeh Mims PA-C LAB - NON-BEAKER BLO OD LABS Final Result [facility] [address] [place] [address] [place] [id number] * Hepatits C antibody ([facility]) (08/12/2014 2:09 PM CDT) HCV Antibody NON-REACTI VE NON-REACTI VE [facility] SIGNAL TO CUT OFF - [facility] 0.01 <1.00 [facility] Blood specimen (specimen) 08/12/2014 2:09 PM CDT 08/13/2014 2:49 AM CDT Narrative Resulting Agency Comment Performing Organization Information: CB [facility] [address] [place] [address] Faizan Duong M.D. Chary Barry MD LAB - BLOOD ORDERABLES Amparo l Result Performing Organization Address City/[facility]/ZIP Co de Phone Number [facility] [address] [place] [address] * COLONOSCOPY W BIOPSY (05/01/2009) us Provider Abstract PROCEDURES Final Result [facility] * Mammo Screening digital (bilat) (09/19/2006) Anatomical Region Laterality Modality Breast Bilateral Other us Luis Ulloa MD IMG MAMMOGRAPHY ORDER LYNDA Final Result from Last 3 Months or Most Recently Relevant to Health Maintenance Insurance MEDICARE [facility] MEDICARE [facility] MEDICARE [place] OF [place] MEDICARE SUPPLEMENT SPECIAL GUARANTOR Advance Directives For more information, please contact: [phone] * Full Code (Latest Code Status on File) Date Activated Date Inactivated Comments 04/23/2019 1:28 PM 04/25/2019 3:40 PM Question Answer Comments Code status determined by: Discussion with patie nt/legal decision maker * Full Code Date Activated Date Inactivated Comments 11/29/2018 8:52 AM 04/23/2019 5:24 AM Question Answer Comments Code status determined by: Discussion with patie nt/legal decision maker * Full Code Date Activated Date Inactivated Comments 11/27/2018 11:32 AM 11/29/2018 8:52 AM Question Answer Comments Code status determined by: Discussion with patie nt/legal decision maker Care Teams Cheerleading Coach Relationship Specialty Start Date End Date Fatemeh Mims PA-C [address] [address] PCP - General Physician Operator Maintainer 05/28/17 Fatemeh Mims PA-C [address] [address] Assigned PCP 11/24/21
--- NOTE | 2024-10-27 14:23 | ED.ALLEREA ---
HPI - Allergic Reaction General Time Seen by Provider: 14:23 Date Seen: 10/27/24 Chief complaint: Allergic Reaction Stated complaint: Right arm swollen due to wasp Time Seen by Provider: 10/27/24 14:14 Source: patient and RN notes reviewed Mode of arrival: ambulatory Limitations: no limitations History of Present Illness HPI narrative: This 69-year-old female is coming in with concern of potential allergic reaction in her right arm. Her right arm continues to swell and become more red. She was stung by multiple wasps yesterday morning. She put her right hand into the mailbox and there was a wasps nest in there. She thinks she was stung at least 6 times, possibly even more. The redness and swelling have moved up to the elbow area. The hand in arm are painful as well as itchy. She has been taking 800 mg of ibuprofen and then using 2 Benadryl every 6-8 hours. The arm is still itchy despite the Benadryl. She has had no rash or hives elsewhere on the body, no difficulty breathing, no oral or pharyngeal swelling. She has had no fevers, no chills, no night sweats, does not feel any flu-like symptoms, does not feel ill. No prior history of reactions to bug bites. Patient also has reported the been trying to ice the arm as much as possible. Related Data Home Medications ?Medication ?Instructions ?Recorded ?Confirmed amlodipine 5 mg tablet 5 mg PO DAILY 10/27/24 10/27/24 atorvastatin 80 mg tablet 80 mg PO DAILY 10/27/24 10/27/24 brimonidine 0.2 % eye drops 1 drp ophthalmic (eye) BID 10/27/24 10/27/24 citalopram 20 mg tablet 20 mg PO DAILY 10/27/24 10/27/24 dorzolamide 22.3 mg-timolol 6.8 1 drp ophthalmic (eye) BID 10/27/24 10/27/24 mg/mL eye drops latanoprost 0.005 % eye drops 1 drp ophthalmic (eye) QPM 10/27/24 10/27/24 triamterene 37.5 1 tab PO DAILY 10/27/24 10/27/24 mg-hydrochlorothiazide 25 mg tablet Allergies Allergy/AdvReac Type Severity Reaction Status Date / Time yellow dye Allergy Severe Anaphylaxis Verified 10/27/24 14:17 Penicillins Allergy Intermediate lip and Verified 10/27/24 14:17 tongue numbness Review of Systems Status of ROS Reports: 6 or more systems reviewed and unremarkable except as noted in History and below [facility] Social History Smoking Status: Never smoker How often do you have a drink containing alcohol: never How often do you have six or more drinks on one occasion: Never AUDIT-C Alcohol total score: 0 Non-prescribed substance use: denies use Exam Const: Vital Signs, click to edit/add: Vital Signs - 24 hr 10/27/24 14:11 10/27/24 16:45 Temperature 97.6 F Pulse Rate [Pulse Oximeter] 68 68 Respiratory Rate 18 16 Blood Pressure [Le ft Upper Arm] 121/77 133/74 Pulse Oximetry 98 98 Oxygen Delivery Me thod Room Air Room Air This 69-year-old female is alert, interactive, no apparent distress. She is ambulatory into the ED of her own accord. Pupils equal round reactive, sclera clear, symmetrical facial function, no rash. Speech is normal, no hoarseness, no stridor. Lips normal without any swelling. Neck is supple, no jugular venous distension. Lungs are clear, good air entry, no wheeze or crackles, no tachypnea, no accessory muscle use. CV regular rate and rhythm, no murmur, normal S1-S2, no S3-S4. Her fingers and her hand are confluently swollen. There is more erythema on the dorsum of her hand but the fingers are certainly swollen, confluency Ivis. They are not erythematous. Neurovascular is intact. She has erythema extending down the forearm, stops a few cm before the elbow. The area of erythema is warm. There is no vesicles, no drainage, see no retained foreign bodies, no open wounds. She does have mobility of these fingers and hand but flexion is limited due to the swelling. Documenting provider has reviewed patient's vital signs: yes Course Course ED Course: Reviewed with patient that I think this is likely localized bug bite reaction. She had multiple stings which would of caused envenomation into the tissues, this can cause significant localized reaction. She really is not giving me symptoms for infection or secondary cellulitis, would not expect a secondary cellulitis to start so quickly either. We will look at some baseline labs to rule out infection. Will give dose of Zyrtec 10 mg orally to help with symptom control. If labs are stable, will likely consider sending her with prednisone and recommendations for meds for symptom control. It is not known if she will have systemic reaction if bit by the same type of wasp in the future. Will discuss with her possibility of sending in an EpiPen and so she can have this on hand. Reevaluation(s) Time of Reevaluation #1: 15:53 Reevaluation #1: The ED is extremely busy and lab has not been able to draw this patient yet. She is complaining of the arm becoming more swollen, nursing staff feels the redness has increased a bit. I really would like to see the labs to see if there is any laboratory support for infection. We will place an IV, give her 10 mg IV dexamethasone, place an ice pack, give her 25 mg IV Benadryl. Time of Reevaluation #2: 16:45 Reevaluation #2: Patient C reactive protein in cell counts are normal. She has the IV in place now. The redness has extended up by the elbow. She wanted to know about removing the stingers. Reviewed with her that I do not see any retained foreign body. She really has not had enough time to be able to tell us if the steroids are helping much. We have given her IV Benadryl but has not been that long. Awaiting the procalcitonin for decision to manage with or without antibiotics. Time of Reevaluation #3: 17:28 Reevaluation #3: Patient's labs have all come back normal, no evidence to support any use of antibiotics. She has not worsened since we have given her medicines, does feel a bit better but arm is still indeed swollen. We did review that this is going to take awhile to come down. She would like her prednisone to [facility], has Epipen already due to dye allergy. Vital Signs Vital signs: Initial Vital Signs Temperature 97.6 F 10/27/24 14:11 Temperature Source Temporal Artery Scan 10/27/24 14:11 Pulse Rate 68 10/27/24 14:11 Respiratory Rate 18 10/27/24 14:11 Blood Pressure 121/77 10/27/24 14:11 Blood Pressure Mean 91 10/27/24 14:11 Blood Pressure Position Sitting 10/27/24 14:11 Pulse Oximetry 98 10/27/24 14:11 Oxygen Delivery Method Room Air 10/27/24 14:11 Vital Signs Temperature 97.6 F 10/27/24 14:11 Pulse Rate 68 10/27/24 14:11 Respiratory Rate 18 10/27/24 14:11 Blood Pressure 121/77 10/27/24 14:11 Pulse Oximetry 98 10/27/24 14:11 Oxygen Delivery Method Room Air 10/27/24 14:11 Temperature 97.6 F 10/27/24 14:11 Pulse Rate 68 10/27/24 16:45 Respiratory Rate 16 10/27/24 16:45 Blood Pressure 133/74 10/27/24 16:45 Pulse Oximetry 98 10/27/24 16:45 Oxygen Delivery Method Room Air 10/27/24 16:45 Medications Administered Medications: Discontinued Medications Generic Name Dose Route Start Last Admin Trade Name Freq PRN Reason Stop Dose Admin Cetirizine HCl 10 mg 10/27/24 14:34 10/27/24 14:46 Cetirizine Hcl 10 Mg Tablet PO 10/27/24 14:35 10 mg DAILY ONE Administration Dexamethasone 10 mg 10/27/24 15:52 10/27/24 16:13 Dexamethasone 10 Mg/Ml Pf IVP 10/27/24 15:53 10 mg ONCE ONE Administration Diphenhydramine HCl 25 mg 10/27/24 15:52 10/27/24 16:09 Diphenhydramine 50 Mg/Ml Inj IVP 10/27/24 15:53 25 mg ONCE ONE Administration MDM - Allergic Reaction Lab Data Attestation: I reviewed the patient's lab results. Labs: Lab Results 10/27/24 Range/Units 16:00 WBC 6.26 (4.50-11.00) K/uL RBC 4.81 (4.00-5.20) m/uL Hgb 13.9 (12.0-16.0) gm/dL Hct 41.0 (33.0-51.0) % MCV 85 (80-100) fL MCH 29 (26-34) pg MCHC 34 (32-36) gm/dL RDW Coeff of Jeanne 12.9 (11.5-15.5) % Plt Count 273 (140-440) K/uL Neut % (Auto) 69.1 (42.0-72.0) % Lymph % (Auto) 18.8 L (20-44) % Hendricks % (Auto) 8.0 (0.0-11.0) % Eos % (Auto) 3.7 (0.0-7.0) % Baso % (Auto) 0.2 (0.0-3.0) % Neut # (Auto) 4.33 (1.7-7.0) K/uL Lymph # (Auto) 1.20 (0.90-2.90) K/uL Hendricks # (Auto) 0.50 (0.00-0.90) K/UL Eos # (Auto) 0.23 (0.00-0.50) K/uL Baso # (Auto) 0.01 (0.00-0.30) K/uL Abs Immat Gran (auto) 0.01 (0.00-0.30) K/uL Imm/Tot Granulo (auto) 0.2 % C-Reactive Protein 1.0 (0.5-1.0) mg/dL Procalcitonin 0.06 (<0.50) ng/mL Discharge Plan Discharge Clinical Impression: Swelling of right upper extremity Patient Disposition: Home, Self-Care Condition: Stable Instructions: Insect Bite or Sting (ED), Anaphylaxis (ED) Additional Instructions: There is no evidence of systemic allergic reaction like anaphylaxis. This certainly is a bug bite reaction that is extensive in your right arm. Will have you continue with prednisone 20 mg twice a day with food, next dose due tomorrow morning, prescription for 5 days written for. Continue with Claritin or Zyrtec 10 mg twice a day for the next 5-7 days as needed while the arm is still swollen. Can continue with Benadryl per bottle directions to help control swelling and itching. Try to elevate and ice this arm as much as able to. If you feel that there is any evidence of secondary infection as we discussed, please seek re-evaluation. If your arm is continuing to swell or have concerns with ongoing reaction despite outlined treatment, please seek re-evaluation. Activity Level: Activity as Tolerated Prescriptions: No Action latanoprost 0.005 % drops 1 drp ophthalmic (eye) QPM atorvastatin 80 mg tablet 80 mg PO DAILY amlodipine 5 mg tablet 5 mg PO DAILY citalopram 20 mg tablet 20 mg PO DAILY brimonidine 0.2 % drops 1 drp ophthalmic (eye) BID triamterene-hydrochlorothiazid 37.5-25 mg tablet 1 tab PO DAILY dorzolamide-timolol 22.3-6.8 mg/mL drops 1 drp ophthalmic (eye) BID Follow Up/Referrals: Jesse Brumfield MD [Primary Care Provider, Urology] Stand Alone Forms: [facility] Info Instructions
[2024-10-27] MEDS: CETIRIZINE HCL 10 MG TABLET PO (14:46)
[2024-10-27] MEDS: DEXAMETHASONE 10 MG/ML PF IVP (16:13)
[2024-10-27 16:17] LABS: Hematocrit 41.0 % (33.0-51.0); Hemoglobin* 13.9 gm/dL (12.0-16.0); Immature Granulocytes Abs Auto 0.01 K/uL (0.00-0.30); Immature Granulocytes Pct Auto 0.2 %; Mean Corpuscular HGB Conc 34 gm/dL (32-36); Mean Corpuscular Hemoglobin 29 pg (26-34); Mean Corpuscular Volume 85 fL (80-100); RDW Coefficient of Variation % 12.9 % (11.5-15.5); Red Blood Count 4.81 m/uL (4.00-5.20); White Blood Count* 6.26 K/uL (4.50-11.00)
[2024-10-27 16:39] LABS: Lymphocytes Absolute Auto 1.20 K/uL (0.90-2.90); Slide Review Reflex No
[2024-10-27 16:45] VITALS: BP 133/74; PULSE 68; RESP 16; O2SAT 98
[2024-10-27 16:50] LABS: Procalcitonin* 0.06 ng/mL (<0.50)
== END 2024-10-27 17:44 | disposition home or self-care (01) ==
PROVIDERS: Emergency Provider Family Medicine; PCP Urology
DX: T63.461A Toxic effect of venom of wasps, accidental (unintentional), initial encounter (principal); R22.31 Localized swelling, mass and lump, right upper limb
CPT/HCPCS: 36415; 84145; 85025; 86140; 96374; 96375; 99284; A9270; J1100; J1200